=== PATIENT | female | born 1970 | race Hispanic/Latino ===

== ENCOUNTER → 2023-08-15 | Outpatient (CLI) | payer MEDICAID | END | disposition home or self-care (01) | LOC: RAH 13:05 | PROVIDERS: ATTEND Internal Medicine | DX: R16.1 Splenomegaly, not elsewhere classified (principal); R10.11 Right upper quadrant pain; R93.2 Abnormal findings on diagnostic imaging of liver and biliary tract; R94.5 Abnormal results of liver function studies | CPT/HCPCS: 74176 ==